=== PATIENT | male | born 1980 | race Caucasian/White ===

== ENCOUNTER 2025-10-07 18:50 | Emergency (ER) | payer OTHER, SELFPAY ==
[2025-10-07 19:02] VITALS: BP 142/67; PULSE 78; RESP 16; TEMP 36.5; O2SAT 98
--- NOTE | 2025-10-07 19:13 | ED.EAR ---
HPI - Ear Problem General Chief complaint: Ear Stated complaint: L Ear patient presents to the [facility] with complaints of left ear pain for the last days with decreased hearing. 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 Patient also noted nasal congestion and nasal drainage. does also report drainage from left ear. Denies fever, chills, body aches, dizziness, shortness of breath, sore throat, nausea, diarrhea. Related Data Allergies Allergy/AdvReac Type Severity Reaction Status Date / Time No Known Allergies Allergy Verified 10/07/25 19:04 Review of Systems Constitutional: Constitutional: Reports as per HPI, Denies chills, Denies fatigue, Denies fever(s) and Denies weakness Eyes: Eyes: Reports no additional eye complaints ENT: Reports as per HPI, Denies vertigo, Denies dizziness, Reports nasal congestion and Denies sore throat Comments: Left ear pain with drainage Cardiovascular: Cardiovascular: Reports no additional cardiovascular complaints Respiratory: Respiratory: Reports as per HPI, Denies chest congestion, Reports cough, Denies dyspnea and Denies wheezing Gastrointestinal: Gastrointestinal: Reports no additional gastrointestinal complaints Genitourinary: Genitourinary: Reports no additional male genitourinary complaints Musculoskeletal: Musculoskeletal: Reports no additional musculoskeletal complaints Integumentary/Breasts: Skin/Breast: Reports as per HPI, Denies erythema and Denies rash Neurologic: Reports as per HPI, Denies vertigo, Denies dizziness, Reports headache(s) and Denies weakness Psychiatric: Psychiatric: Reports no additional psychiatric complaints Endocrine: Endocrine: Reports no additional endocrine complaints Hematologic/Lymphatic: Hematologic/Lymphatic: Reports no additional hematologic/lymphatic complaints Allergic/Immunologic: Allergic/Immunologic: Reports no additional allergic/immunologic complaints Exam Const: General: healthy appearing and no acute distress Nutritional Appearance: well nourished Orientation/consciousness: patient oriented x3 Limitations: no limitations HENMT: Head: normal to inspection Ears: external ears normal and TM's abnormal bilaterally Face/Nose/Sinus: Normal external nose present and Normal nares present Face and sinus: normal facial exam and sinuses nontender Mouth: Yes Normal oral and palatal mucosa present, Yes lip normal and Yes moist mucous membranes Throat: posterior oropharynx normal Other: left TM unable to visualize due to purulence green thick drainage. No canal swelling or erythema noted. minimal pain with movement of left outer ear Neck: Neck: normal visual inspection and no lymphadenopathy Resp: Effort & Inspection: normal respiratory effort Auscultation: clear to auscultation bilaterally Cardio: Rate: regular rate Rhythm: regular rhythm Skin: General skin exam: normal color Rashes: no rashes Wounds: no wounds Neuro: General: patient oriented x3 Speech: normal speech Gait exam (Neuro): Normal gait present Extrem: General: normal to inspection and no clubbing, cyanosis or edema Psych: Mental Status: mental status grossly normal Affect: normal affect Attitude: cooperative Course Course Level of Care: Express Care Visit Vital Signs Vital signs: Vital Signs Temperature 97.7 F 10/07/25 19:02 Pulse Rate 78 10/07/25 19:02 Respiratory Rate 16 10/07/25 19:02 Blood Pressure 142/67 H 10/07/25 19:02 Pulse Oximetry 98 10/07/25 19:02 Oxygen Delivery Room Air 10/07/25 19:02 Temperature 97.7 F 10/07/25 19:02 Pulse Rate 78 10/07/25 19:02 Respiratory Rate 16 10/07/25 19:02 Blood Pressure 142/67 H 10/07/25 19:02 Pulse Oximetry 98 10/07/25 19:02 Oxygen Delivery Room Air 10/07/25 19:02 [facility] MDM Narrative Medical decision making narrative: unable to visualize TM due to significant drainage. Patient noted frequent ear infections with history of traumatic rupture in the past. unsure if rupture of her closed The patient was evaluated by myself in the express care. History is obtained from patient who is an independent historian and physical exam was performed. Available medical records were reviewed at this time. Exam findings show no acute concerns or changes; patient is non-toxic appearing and is in no distress. Patient is appropriate for outpatient treatment and follow-up. I have evaluated and discussed social determinants of health with the patient that could potentially impact subsequent diagnosis and treatment plans. Differential diagnosis and treatment plan were discussed with the patient. Patient agrees with discussion and after shared medical decision making agrees with plan of care. All questions were answered to the patient's satisfaction. Differential Diagnosis Differential Diagnosis: otitis media, otitis externa, sinusitis, upper respiratory infection Medical Records I have reviewed the following patient records and this information was taken into consideration when formulating the assessment and plan.: previous labs, previous ER visits, previous hospitalizations and previous clinic visits Discharge Plan Discharge Clinical Impression: Acute otitis media, left Patient Disposition: Home Condition: Stable Instructions: Antibiotic Form, Ear Infection (GEN) Additional Instructions: take the antibiotics until gone. May use probiotics or yogurt daily to help with upset stomach /diarrhea with antibiotic use. May use Tylenol and ibuprofen to help with pain or fever. May use warm compresses to the outside of the ear to help with pain. Can also use Sudafed and Flonase nasal spray to help with symptoms associated with ear infection and help the ears drain. Follow-up with primary care physician if symptoms not improving or worsen. Patient Language: Niuean Prescriptions: New ofloxacin 0.3 % drops 10 drp LEFT EAR DAILY 7 Days Qty: 10 0RF amoxicillin 875 mg tablet 875 mg PO Q12H Qty: 20 0RF Follow-up/Referrals: Deloris,Carlin Guerrero MD [Primary Care Provider, Unknown] Time of Disposition: 19:15
--- OUTSIDE RECORDS SUMMARY | 2025-10-07 19:39 | XMS_ITS | Clinical Summary ---
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 Name Role Phone Carlin Puentes MD Primary Care Provider [phone] Allergies No known active allergies Medications testosterone cypionate (DEPO-TESTOTERO NE) 100 mg/mL injection Inject into the muscle as instructed every 7 days Active meloxicam (MOBIC) 15 mg tablet Take 1 tablet (15 mg total) by mouth daily 30 tablet 5 Active cyclobenzaprine (FLEXERIL) 10 mg tablet Take 1 tablet (10 mg total) by mouth 3 (three) times a day as needed for muscle spasms 30 tablet 5 Active Active Problems Problem Noted Date Diagnosed Date Left chronic serous otitis media 10/03/2022 Assessment & Plan (10/03/2022 9:15 PM MEDICAL TRANSCRIPTION SUPERVISOR): He appears to have a persistent middle ear effusion with conductive hearing loss and this has been going on for several months now. It seems to be a recurring problem. I discussed further treatment of this an I discussed doing a simple myringotomy along with medication versus doing a myringotomy tube placement. He is not sure that he really wants to pursue either. We decided to go ahead and treat with a steroid and antibiotic with plans for a follow-up if he has continued problems. In that situation I would recommend a tube. He understands and would like to try medication 1st. Dysfunction of both eustachian tubes 10/03/2022 Assessment & Plan (10/03/2022 9:14 PM MEDICAL TRANSCRIPTION SUPERVISOR): He has bilateral eustachian tube problems but is much more symptomatic on the left side. I am not sure there is really much the needs to be done for the right side but I did discuss possible myringotomy tube for the left. Impaired fasting glucose 06/08/2016 Hyperlipidemia 06/08/2016 Testosterone deficiency 06/08/2016 Gastroesophageal reflux disease 06/01/2016 Resolved Problems Problem Noted Date Diagnosed Date Resolved Date Establishing care with nel andrew, encounter for 05/31/2022 12/28/2024 Cramps, muscle, general 05/31/2022 03/0 12/2024 Snoring 06/28/2016 11/07/2018 Gasping for breath 06/28/2016 9 Restless sleeper 06/28/2016 11/07/2018 Reduced libido 06/08/2016 11/07/2018 Fatigue 06/01/2016 11/07/2018 Pain in shoulder 06/01/2016 11/07/2018 Immunizations Immunization Administration Dates Next Due Influenza, Quadrivalent, Iris l Culture-based MDCK, Preservative Free, Antibiotic Free, Intramuscular 09/05/2023,09/13/2022 Influenza, Quadrivalent, Spl it, Preservative Free, Intramuscular 09/12/2021 Influenza, Trivalent, Cell Culture-based MDCK, Preservative Free, Antibiotic Free, Intramuscular 07/23/2024 Influenza, Unspecified 07/23/2024,2021(Deferred: Patient Refused) Tdap 11/07/2018 Surgical History Surgery Date Site/Laterality Comments WISDOM TOOTH EXTRACTION ORIF TIBIA FRACTURE Right MYRINGOTOMY Medical History Medical History Date Comments GERD (gastroesophageal reflux disease) Allergic rhinitis Ear problems HL (hearing loss) Dizziness Family History Medical History Relation Name Comments Heart attack Father Heart disease Father Sleep apnea Father No Known Problems Mother Heart attack Paternal Grandfather Relation Name Status Comments Father Mother Paternal Grandfather Social History Tobacco Use Types Packs/Day Years Used Date Smoking Tobacco: Former Cigarettes E-cigarettes Smokeless Tobacco: Never Tobacco Cessation:Counseling Given: Not Answered Comments:E-cigarettes Alcohol Use Standard Drinks/Week Comments Yes 6 (1 standard drink = 0.6 oz pur e alcohol) 5-10 beers on weekends AUDIT-C Answer Date Recorded Frequency of Alcohol Consumption 2-4 times a mon th 12/10/2019 Average Number of Drinks Not on file 020 Frequency of Binge Drinking Not on file 11/28 PHQ-2 Answer Date Recorded PHQ-2 Total Score (If total score is 3 or more points, staff should administer the PHQ-9) 0 12/28/2024 Sex and Gender Information Value Date Recorded Sex Assigned at Not on file Legal Sex Male 11:58 AM MEDICAL TRANSCRIPTION SUPERVISOR Gender Identity Male 11/07/2018 12:20 PM MEDICAL TRANSCRIPTION SUPERVISOR Sexual Orientation Not on file 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 Not on file Not on file Last Filed Vital Signs Vital Sign Reading Time Taken Comments Blood Pressure 132/80 12/28/2024 1:35 PM MEDICAL TRANSCRIPTION SUPERVISOR Pulse 77 12/28/2024 1:35 PM MEDICAL TRANSCRIPTION SUPERVISOR Temperature 36.2 C (97.1 F) 12/28/2024 1:35 PM MEDICAL TRANSCRIPTION SUPERVISOR Respiratory Rate 18 12/28/2024 1:35 PM MEDICAL TRANSCRIPTION SUPERVISOR Oxygen Saturation 98% 12/28/2024 1:35 PM MEDICAL TRANSCRIPTION SUPERVISOR Inhaled Oxygen Concentration - - Weight 95.3 kg (210 lb 3.2 oz) 12/28/2024 1:35 P M MEDICAL TRANSCRIPTION SUPERVISOR Height 180.3 cm (5' 11) 12/28/2024 1:35 PM MEDICAL TRANSCRIPTION SUPERVISOR Body Mass Index 29.32 12/28/2024 1:35 PM MEDICAL TRANSCRIPTION SUPERVISOR Plan of Treatment Health Maintenance Due Date Last Done Comments Hepatitis C Screening 1981 Varicella Vaccines (1 of 2 - 13+ 2-dose series) 1994 Hepatitis B Screening 1999 HPV Vaccines (1 - 3-dose SCDM series) 2008 Regular Well Visit/Exam 18-64 11/07/2019 11/07/2018 Covid-19 Vaccine (2 - 2024- season) 2025 05/02/2021 Influenza Vaccine (#1) 2025 , 07/23/2024, 09/05/2023, Additional history exists Depression Screening 12/28/2025 12/28/2024, 08/18/2024, 05/31/2022 DTaP/Tdap/Td Vaccine (2 - Td or Tdap) 11/07/2028 11/07/2018 Pneumococcal vaccine <65 Aged Out No longer eligible based on patient's age to complete this topic Insurance [facility] [employer]/PPO Address: [address] [address] [place] [address] [facility] [employer] H[employer]/PPO Address: [address] [address] [place] [address] [facility] [employer] H[employer]/PPO Address: [address] [address] [place] [address] [place] [address] [employer] H[employer]/PPO Address: [address] [address] [place] [address] Care 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
== END 2025-10-07 19:19 | disposition home or self-care (01) ==
PROVIDERS: Emergency Provider Nurse Practitioner Family; PCP Family Medicine
DX: H66.92 Otitis media, unspecified, left ear (principal)
CPT/HCPCS: 99213; G0463